=== PATIENT | male | born 1930 | race Hispanic/Latino ===

== ENCOUNTER → 2022-08-02 | Outpatient (CLI) | payer MEDICARE ==
[~2022-08-02] MED LIST: LIDOCAINE HCL 4% LTA SOL 4 ML VIAL ONE
== END | disposition home or self-care (01) ==
LOC: WHH 10:07
PROVIDERS: ATTEND Podiatrist Foot & Ankle Surgery
DX: I70.245 Atherosclerosis of native arteries of left leg with ulceration of other part of foot (principal); L97.522 Non-pressure chronic ulcer of other part of left foot with fat layer exposed; I12.9 Hypertensive chronic kidney disease with stage 1 through stage 4 chronic kidney disease, or unspecified chronic kidney disease; N18.9 Chronic kidney disease, unspecified; I89.0 Lymphedema, not elsewhere classified; E78.5 Hyperlipidemia, unspecified; I48.91 Unspecified atrial fibrillation; I25.10 Atherosclerotic heart disease of native coronary artery without angina pectoris; Z87.891 Personal history of nicotine dependence; Z79.899 Other long term (current) drug therapy
CPT/HCPCS: 73630; G0463; A4649; A4450

== ENCOUNTER → 2022-08-09 | Outpatient (CLI) | payer MEDICARE | END | disposition home or self-care (01) | LOC: WHH 11:01 | PROVIDERS: ATTEND Podiatrist Foot & Ankle Surgery | DX: I70.245 Atherosclerosis of native arteries of left leg with ulceration of other part of foot (principal); L97.522 Non-pressure chronic ulcer of other part of left foot with fat layer exposed; I12.9 Hypertensive chronic kidney disease with stage 1 through stage 4 chronic kidney disease, or unspecified chronic kidney disease; N18.9 Chronic kidney disease, unspecified; R59.1 Generalized enlarged lymph nodes; E78.5 Hyperlipidemia, unspecified; I48.91 Unspecified atrial fibrillation; I25.10 Atherosclerotic heart disease of native coronary artery without angina pectoris; Z87.891 Personal history of nicotine dependence; Z79.899 Other long term (current) drug therapy | CPT/HCPCS: 11042; A4649 ==